=== PATIENT | male | born 1975 | race Caucasian/White ===

== ENCOUNTER 2022-01-06 04:26 | Day surgery (SDC) | payer OTHER, SELFPAY ==
[2022-01-06] VITALS (12 sets, daily range): BP systolic 89–160; BP diastolic 49–94; PULSE 80–106; RESP 18–20; TEMP 36.3–36.6; O2SAT 92–99; BMI 28.8
[2022-01-06] MEDS: nitroglycerin 0.4 mg sublingual Tablet SUBLINGUAL (05:43)
[2022-01-06] MEDS: ondansetron 2 mg/ML SDV 2 mL 4 MG IVP (06:05)
--- NOTE | 2022-01-06 06:07 | XRR_ITS ---
PROCEDURE INFORMATION: Exam: XR Chest Exam date and time: 01/06/2022 6:21 AM Age: 46 years old Clinical indication: Other: Food impaction; Additional info: Food impaction. Have swallow some dye please TECHNIQUE: Imaging protocol: Radiologic exam of the chest. Views: 1 view. Other technique: Frontal portable upright view of the chest. COMPARISON: No relevant prior studies available. FINDINGS: Lungs: The lungs are clear bilaterally. The pulmonary vasculature is normal. Pleural spaces: No pleural effusion. No pneumothorax. Heart/Mediastinum: Contrast is present in the mid-distal thoracic esophagus. A peripherally outlined 2.7 x 2.0 cm filling defect is suggested in the thoracic esophagus just above the level of the aortic arch. The heart is normal in size and contour. Bones/joints: No acute chest wall abnormality identified. XR/XR chest 1V portable [id number] IMPRESSION: 1. Food bolus impaction at the mid-upper thoracic esophageal junction. 2. Otherwise, no acute cardiopulmonary abnormality identified.
[2022-01-06] MEDS: diatrizoate meglumine 30 mL Sol PO (06:27)
--- NOTE | 2022-01-06 06:32 | ED_ITS ---
HPI - Nausea/Vomiting/Diarrhea General: Chief complaint: Airway/Esophagus Foreign Body Stated complaint: difficulty swallowing/vomiting Time Seen by Provider: 01/06/22 05:04 Source: patient History of Present Illness: Healthy 46-year-old male. Who presents with vomiting on and off since last night around 8 PM. He says he has an uncomfortable feeling in the bottom of his chest. He does not know if anything is stuck in his esophagus or not. He is not handling his own secretions, and is carrying a bowl around for when he vomits. He notes that he took 2 ibuprofen around that time, and they did not come back up in pill form. He denies any fever. No shortness of breath. No classical chest discomfort. MD elicited complaint: nausea, abdominal pain and other Onset (ago): hour(s) Description of vomiting: watery Associated nausea: Yes Location of pain: None Severity: moderate Exacerbating factors: none Relieving factors: none Associated symtoms: Reports chest pain, anorexia and nausea; Denies headache(s), palpitations or short of breath Review of Systems ENMT: Denies: throat pain Card: Reports: chest pain; Denies: palpitations GI: Reports: nausea Neuro: Denies: headache(s) Course Consultations: Consultation #1: [place] Time: 06:35 Vital Signs: Vital signs: Vital Signs Temperature 97.6 F 01/06/22 08:34 Pulse Rate 85 01/06/22 08:45 Respiratory Rate 18 01/06/22 08:45 Blood Pressure 111/60 01/06/22 08:45 Pulse Oximetry 96 01/06/22 08:45 MDM - Nausea/Vomiting/Diarrhea Medical Decision Making Attempted IV glucagon, sublingual nitroglycerin, and a soda. Patient vomited. No relief. Chest x-ray performed after drinking Gastrografin, and shows obstruction near the GE junction. No extravasation. The patient vomited the dye. Contacted GI on-call. He asks to have GI Lab team called in. Doing so currently. He is medically quite stable. He will go as an outpatient over the GI Lab on their arrival. Lab Data Radiology Impressions Chest X-Ray 01/06/22 06:07 IMPRESSION: 1. Food bolus impaction at the mid-upper thoracic esophageal junction. 2. Otherwise, no acute cardiopulmonary abnormality identified. Discharge Plan Discharge Patient Disposition: Placed in Observation Clinical Impression: Esophageal obstruction due to food impaction Coding Level of Care Code ED Behavioral Health Associate for Wiley Dsouza
--- NOTE | 2022-01-06 07:02 | ANES.PREANE2 ---
Pre-Anesthetic Assessment Height/Weight: Height 1.75 m Weight 88.451 kg Temp Pulse Resp BP Pulse Ox 97.8 F 82 18 131/91 97 01/06/22 04:56 01/06/22 06:33 01/06/22 06:33 01/06/22 06:33 01/06/22 06:33 Familial anesthetic complications: None Was Beta Holley taken within 24 hours: N/A Was Clonidine taken within 24 hours: N/A Last intake: Intake Last Solid Date 01/05/22 Last Solid Time 20:00 Social No alcohol and No tobacco Exam alert, oriented x 3, clear to auscultation bilaterally and regular rate & rhythm Airway Submandibular: within normal limits Cervical ROM: within normal limits Mallampati: Class I Dentition: full History/ROS No significant complaints Pulmonary None reported CV/HEM None reported None reported Hepatic None reported GI Gastroesophageal Reflux Disease Esophageal foreign body Metabolic None reported Musc/skel None reported Neuropsych None reported Anesthetic Plan ASA status: 2 Anesthesia: Anesthesia Evaluation and General Other: We discussed risk and benefits of general anesthesia including PONV, sore throat (sometimes severe), corneal abrasion, positioning and peripheral nerve injuries, life threatening allergic reaction, post operative ICU admission requiring prolonged intubation, stroke, heart attack, , and rare incidences of recall. Patient consents to proceed with general anesthesia. Risk of > 500 ml blood loss (7ml/kg in children): No Medications/Allergies Home Medications Medication Instructions Recorded Confirmed Last Taken Type pantoprazole 40 mg tablet,delayed 40 mg PO DAILY #90 tab 01/06/22 Unknown Rx release Allergies Allergy/AdvReac Type Severity Reaction Status Date / Time No Known Allergies Allergy Verified 01/06/22 06:06 Data Anesthesia Cardiac Studies: No Data to Display
[2022-01-06] MEDS: fentaNYL 50 mcg/mL INJ 2mL 75 MCG IVP (07:05)
[2022-01-06] MEDS: sodium chloride 0.9% 1,000 ML 30 ML IV (07:39)
--- NOTE | 2022-01-06 08:27 | ANE.PACU2 ---
Inpatient post-anesthesia follow up: Airway intact: Yes Vital signs: Temperature 97.4 F Pulse Rate 80 Respiratory Rate 20 Blood Pressure 112/58 Pulse Oximetry 95 Oxygen Delivery Me thod Room Air Oxygen Flow Rate Fraction of Inspir ed Oxygen Hydration adequate: Yes Nausea and vomiting: No Pain level: 1 Mental status: Baseline
== END 2022-01-06 09:00 | disposition home or self-care (01) ==
LOC: ER 06:37 → GILAB 07:08
PROVIDERS: Emergency Provider Emergency Medicine; PCP Nurse Practitioner Family; Visit Provider Internal Medicine
DX: T18.128A Food in esophagus causing other injury, initial encounter (principal); K21.00 Gastro-esophageal reflux disease with esophagitis, without bleeding; K29.70 Gastritis, unspecified, without bleeding; K29.80 Duodenitis without bleeding
CPT/HCPCS: 43247; 71045; J0330; J1610; J2405; J2704; J3010; J7030; Q9963

== ENCOUNTER → 2023-05-01 10:53 | Outpatient (BNVA) | payer OTHER, SELFPAY | PROVIDERS: PCP Nurse Practitioner Family; Visit Provider Dermatology | DX: D48.5 Neoplasm of uncertain behavior of skin (principal); L57.0 Actinic keratosis; L72.0 Epidermal cyst; L71.8 Other rosacea; L21.8 Other seborrheic dermatitis; D22.5 Melanocytic nevi of trunk; L82.1 Other seborrheic keratosis; Z85.828 Personal history of other malignant neoplasm of skin; L82.0 Inflamed seborrheic keratosis | CPT/HCPCS: 11102; 17000; 17110; 99204 ==

== ENCOUNTER → 2023-08-12 12:59 | Outpatient (BNVA) | payer OTHER, SELFPAY | PROVIDERS: PCP Nurse Practitioner Family; Visit Provider Dermatology | DX: Z85.828 Personal history of other malignant neoplasm of skin (principal); L71.8 Other rosacea; L92.3 Foreign body granuloma of the skin and subcutaneous tissue; L21.8 Other seborrheic dermatitis; D22.61 Melanocytic nevi of right upper limb, including shoulder; L82.1 Other seborrheic keratosis; L73.8 Other specified follicular disorders; L72.0 Epidermal cyst | CPT/HCPCS: 99213 ==

== ENCOUNTER → 2025-04-21 10:57 | Outpatient (BNVA) | payer BC, SELFPAY | PROVIDERS: PCP Family Medicine; Visit Provider Family Medicine | DX: R00.2 Palpitations (principal) | CPT/HCPCS: 80053; 84443 ==

== ENCOUNTER → 2025-04-26 10:01 | Outpatient (BNVA) | payer BC, SELFPAY | PROVIDERS: PCP Family Medicine; Visit Provider Family Medicine | DX: R79.89 Other specified abnormal findings of blood chemistry (principal) | CPT/HCPCS: 84403 ==